=== PATIENT | female | born 1970 | race Caucasian/White ===

== ENCOUNTER 2016-06-08 05:41 | Day surgery (SDC) | payer OTHER ==
--- NOTE | 2016-06-04 09:18 | PREOPHP ---
DATE OF ADMISSION: 06/08/2016 HISTORY OF PRESENT ILLNESS: This 46-year-old patient is admitted for elective cataract surgery of the left eye. The patient has had progressive deterioration in vision in that eye over the past year's time. 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 The patient is also noted to be an insulin- dependent diabetic, has systemic hypertension and anemia. The patient was also noted to have some changes in the retina, however, she has previously had retinal consult, which has ruled out diabetic retinopathy. CURRENT MEDICATIONS: Includes: 1. NovoLog. 2. Lantus insulin. 3. Nortriptyline. 4. Gabapentin. 5. Keppra. 6. Metoprolol. 7. Iron sulfate. ALLERGIES: 1. DILANTIN. 2. PENICILLIN. 3. LYRICA. 4. HUMALOG. PHYSICAL EXAMINATION: The visual acuity best corrected is 20/30 in the right eye and 20/100 in the left eye. Slit lamp examination reveals the patient to have bilateral patent peripheral iridotomies. The patient has an advanced nuclear sclerotic cataract in the left eye. Applanation tonometry 16 mmHg in both eyes. Examination of the retina does not reveal the presence of any diabetic retinopathy. DIAGNOSIS: Cataract, left eye. PLAN: Cataract extraction with lens implant, left eye. The risks and alternatives to the surgery have been discussed with the patient as well as the hope for improvement of visual acuity leading to a greater ability to perform activities of daily living. The patient understands this and agrees to proceed with surgery. Dictated By: FE ORTEGA/KALINA Conf#: [id number] DID#: [id number] ANDREW
[2016-06-08] VITALS (11 sets, daily range): BP systolic 94–120; BP diastolic 53–70; PULSE 72–80; RESP 13–21; Ht 167.6 cm; Wt 83.1 kg
[~2016-06-08] VITALS: Ht 167.6 cm; Wt 83.1 kg
[~2016-06-08 05:41] MED LIST: CIPROFLOXACIN 0.3% 2.5 ML OPH OPER SCH; CYCLOPENTOLATE/PHENYLEPH 2 ML OPH OPER SCH; DICLOFENAC 0.1% 2.5 ML OPH OPER SCH; GABA-528 PO; LANT3I SC; LEVE10006 PO; METO-429 PO; RANI150C11 PO; TOPI50TA5 PO; TROPICAMIDE 1% 2 ML OPH OPER SCH
[2016-06-08] MEDS ORDERED: CARBACHOL 0.01% 1.5 ML OPH INJ ONE (07:03)
[2016-06-08] MEDS ORDERED: LIDOCAINE 4% (MPF) 5 ML INJ ONE (07:03)
[2016-06-08] MEDS ORDERED: DEXAMETHASONE 4 MG/ML 1 ML INJ ONE (07:04)
[2016-06-08] MEDS ORDERED: GENTAMICIN 80 MG INJ ONE (07:04)
[2016-06-08] MEDS ORDERED: EPINEPHrine 1 MG INJ ONE (07:05)
[2016-06-08] MEDS ORDERED: FENTAnyl 50 MCG/ML VIAL IV PRN ×2 (08:00)
[2016-06-08] MEDS ORDERED: LABETALOL HCL 20MG INJ IV PRN (08:00)
[2016-06-08] MEDS ORDERED: ONDANSETRON 4 MG INJ IV PRN (08:00)
[2016-06-08] MEDS ORDERED: LEVETIRACETAM 500 MG TAB PO ONE (08:00)
[2016-06-08] MEDS ORDERED: hydrALAzine 20 MG INJ IV PRN (08:00)
[2016-06-08] MEDS ORDERED: MEPERIDINE 25 MG INJ IV PRN (08:00)
[2016-06-08] MEDS ORDERED: MIDAZOLAM 1 MG/ML 2 ML INJ IV PRN (08:00)
[2016-06-08] MEDS ORDERED: OXYCODONE/ACETAMINOPHEN (5/325) TAB PO PRN ×2 (08:00)
[2016-06-08] MEDS ORDERED: EPHEDrine SULFATE 50 MG/5 ML SYG IV PRN (08:00)
[2016-06-08] MEDS ORDERED: morphine (1 MG/ML) 10ML SYRINGE IV PRN ×3 (08:00)
[2016-06-08] MEDS ORDERED: HYDROmorphONE (0.2 MG/ML) 10ML SYG IV PRN ×3 (08:00)
[2016-06-08] MEDS ORDERED: DIPHENHYDRAMINE 50 MG INJ IV PRN (08:00)
[2016-06-08] MEDS ORDERED: ATROPINE 1 MG/10 ML SYRINGE IV PRN (08:00)
[2016-06-08] MEDS ORDERED: PROPOFOL 20 ML ONE (08:03)
[2016-06-08] MEDS ORDERED: LIDOCAINE 100 MG SYRINGE ONE (08:03)
[2016-06-08] MEDS ORDERED: GENTAMICIN 80 MG INJ INJ ONE (08:15)
[2016-06-08] MEDS ORDERED: CARBACHOL 0.01% 1.5 ML OPH INJ IO ONE (08:15)
[2016-06-08] MEDS ORDERED: HYALURONATE/CHONDROITIN 1ML OPH INJ IO ONE (08:15)
[2016-06-08] MEDS ORDERED: DEXAMETHASONE 4 MG/ML 1 ML INJ INJ ONE (08:15)
[2016-06-08] MEDS ORDERED: INSULIN NOVALOG SQ (08:18)
[2016-06-08] MEDS ORDERED: DOCU100C26 PO (08:29)
[2016-06-08] MEDS ORDERED: IRON PO (08:29)
[2016-06-08] MEDS ORDERED: ALBU8.5H3 INH (08:29)
[2016-06-08] MEDS ORDERED: FENTAnyl 50 MCG/ML VIAL ONE (08:33)
[2016-06-08] MEDS ORDERED: MIDAZOLAM 1 MG/ML 2 ML INJ ONE ×2 (08:33→08:39)
[2016-06-08] MEDS ORDERED: LIDOCAINE 4% CR ONE (09:57)
--- NOTE | 2016-06-08 11:51 | OPR ---
DATE OF OPERATION: 06/08/2016 PREOPERATIVE DIAGNOSIS: Cataract, left eye. POSTOPERATIVE DIAGNOSIS: Cataract, left eye. OPERATION PERFORMED: Cataract extraction with lens implant, left eye. SURGEON: Fe Borjas MD. ANESTHESIA: Monitored anesthesia. ANESTHESIOLOGIST: Varun Mary MD. OPERATION: Phacoemulsification with posterior chamber intraocular lens implant, left eye. PROCEDURE: The patient was brought to the operating room and placed on the table with an IV in plac e and the patient attached to an extruder. Oxygen was given via face mask. After some intravenous sedation was administered, local anesthesia was given using Xylocaine 2% with epinephrine, mixed with Marcaine 0.5%. This was given in a lid block and retrobulbar injection. The patient was then prepped and draped in the usual sterile manner. A wire lid speculum was inserted between the lids of the left eye. A Superblade was used to enter th e anterior chamber at the corneoscleral limbus at the 10:30 o'clock position. A separate incision wa s made using a 3.0-mm keratome which entered the corneoscleral junction at the 12 o'clock position. Through this 3-mm opening, an irrigating cystitome was introduced into the anterior chamber. The alcides mber was filled with Viscoat and an anterior capsulotomy was performed. Balanced salt solution was t hen used for hydrodissection of the lens. A phacoemulsification handpiece was then brought into the field and introduced into the anterior chamber. The lens nucleus was emulsified using a deep groove and cracking the nucleus into quadrants. Following this, each quadrant was aspirated and emulsified at the pupillary margin. After this was completed, the irrigation/aspiration handpiece was brought to the field, introduced i nto the posterior chamber, and the lens cortical material was removed. When this was completed, basilia tional Viscoat was injected into the anterior and posterior chambers. The 3-mm opening had its internal lips enlarged, and then the posterior chamber intraocular lens sophia suring 24.0 diopters ([employer], model LI61AO) was then injected into the posterio r chamber using the lens injector system. After the leading haptic was introduced into the capsular bag and the lens optic was present in the center of the eye, the injector was removed and the traili ng haptic was grasped with non-toothed forceps and introduced into the capsular fold superiorly. A S inskey hook was then used to rotate the intraocular lens so that the lips were oriented in the horiz ontal meridian. One 10-0 nylon suture was placed across the wound. Prior to tying, the irrigation/aspiration handpiece was reintroduced into the anterior chamber to re move the Viscoat. Miochol was instilled to constrict the pupil, and then the 10-0 nylon suture was t ied. The ends were cut short and then the knot was buried. Then, 0.5 mL of dexamethasone and 0.5 mL of Ancef were injected into the sub-Tenon space in the infe rior fornix. Ciloxan drops were then placed on the surface of the eye. The speculum was removed and a patch was applied. The patient then left the operating room in satisfactory condition. Dictated By: FE ORTEGA/KALINA Conf#: [id number] DID#: [id number]
== END 2016-06-08 10:35 | disposition home or self-care (01) ==
LOC: SDS 05:41
PROVIDERS: ATTEND Ophthalmology
DX: H25.12 Age-related nuclear cataract, left eye (principal); E11.9 Type 2 diabetes mellitus without complications; Z79.4 Long term (current) use of insulin; I10 Essential (primary) hypertension; Z88.0 Allergy status to penicillin; E66.9 Obesity, unspecified; Z68.36 Body mass index [BMI] 36.0-36.9, adult
CPT/HCPCS: 66984; 82962; J0171; J1100; J1170; J1580; J2250; J2405; J3010; V2632; Z7512; Z7610; J2001

== ENCOUNTER 2018-04-01 23:31 | Emergency (ER) | END 2018-04-02 05:10 | disposition home or self-care (01) ==